=== PATIENT | female | born 1990 | race American Indian/Alaskan Native ===

== ENCOUNTER 2019-04-26 07:27 | Day surgery (SDC) | payer BC ==
[~2019-04-26 07:27] MED LIST: LACTATED RINGERS 1,000 ML IV SCH; NEURONTIN PO NR; TRANSDERM-SCOP TD NR; VERSED IV NR
--- NOTE | 2019-04-26 08:57 | Anesthesia Consultation ---
Anesthesia Consult and Med Hx Date of service: 04/26/19 - Airway Anesthetic Teeth Evaluation: Good (gum piercing above top incisors cannot be removed.) ROM Head & Neck: Adequate Mental/Hyoid Distance: Adequate Mallampati Class: Class II Intubation Access Assessment: Probably Good - Pulmonary Exam CTA: Yes - Cardiac Exam Cardiac Exam: RRR - Pre-Operative Health Status ASA Pre-Surgery Classification: ASA1 Proposed Anesthetic Plan: General - Pulmonary Hx Smoking: No Hx Respiratory Symptoms: No Hx Sleep Apnea: No - Cardiovascular System Hx Hypertension: No Hx Heart Attack/AMI: No Hx Percutaneous Transluminal Coronary Angioplasty (PTCA): No Hx Cardia Arrhythmia: No - Central Nervous System Hx Seizures: No CVA: No Hx Back Pain: Yes (LOW) Hx Psychiatric Problems: No - Gastrointestinal Hx Gastroesophageal Reflux Disease: No - Endocrine Hx Renal Disease: No Hx Liver Disease: No Hx Insulin Dependent Diabetes: No Hx Non-Insulin Dependent Diabetes: No Hx Thyroid Disease: No - Other Systems Hx Obesity: Yes - Additional Comments Anesthesia Medical History Comments: No prior GA. No FHx anesthetic complications.
--- NOTE | 2019-04-26 08:57 | Anesthesia Day of Surgery ---
Anesthesia Day of Surgery - Day of Surgery Patient Examined: Yes Patient H&P Reviewed: Yes Patient is NPO: Yes
[2019-04-26] MEDS ORDERED: BLOXIVERZ ONE (09:00)
[2019-04-26] MEDS ORDERED: TORADOL ONE (09:00)
[2019-04-26] MEDS ORDERED: ROBINUL ONE ×2 (09:00→10:29)
[2019-04-26] MEDS ORDERED: MARCAINE 0.5% INFILTRATI ONE ×2 (09:00→10:25)
[2019-04-26] MEDS ORDERED: SUBLIMAZE ONE ×2 (09:03→10:30)
[2019-04-26] MEDS ORDERED: DIPRIVAN 10 MG/ML IV ONE (09:03)
--- NOTE | 2019-04-26 09:13 | Short Stay Summary ---
Short Stay Documentation Date of service: 04/26/19 Narrative H&P: Pt is a 28yo BF G0 LMP 04/09/19 presents for surgical evaluation and treatment of chronic pelvic pain. She states her pain has been ongoing for 18 months, and pelvic u/s was essentially normal except for a small left ovarian cyst 1.7 x 2 x 1.3cm She is now scheduled for a Diagnostic Laparoscopy for Chronic Pelvic Pain. - History Principal diagnosis: Pelvic pain H&P: obtained from office Past Medical History: No medical history Past Surgical History: No surgical history Social history: no significant social history, - Allergies and Medications Current Medications: Allergies amoxicillin Allergy (Verified 04/26/19 09:04) Hives Penicillins Allergy (Verified 04/21/19 19:17) Hives and Throat clogging Home Medications Medication Instructions Recorded Confirmed Last Taken Type No Known Home Medications [No 04/21/19 04/21/19 Unknown History Reported Home Medications] Active Medications Celecoxib (Celebrex) 200 mg PO PREOP NR Stop: 04/26/19 23:59 Last Admin: 04/26/19 08:40 Dose: 200 mg Documented by: Gabapentin (Neurontin) 300 mg PO PREOP NR Stop: 04/26/19 23:59 Last Admin: 04/26/19 08:40 Dose: 300 mg Documented by: Hydromorphone HCl (Dilaudid) 0.5 mg IV Q10MIN PRN PRN Reason: Pain , Severe (7-10) Stop: 04/26/19 16:00 Lactated Ringer's (Lactated Ringers) 1,000 mls @ 100 mls/hr IV DIRECT DAVID Midazolam HCl (Versed) 2 mg IV PREOP NR Stop: 04/26/19 23:59 Scopolamine (Transderm-Scop) 1 each TD PREOP NR Stop: 04/29/19 23:59 Last Admin: 04/26/19 08:40 Dose: 1 each Documented by: - Physical exam General appearance: mild distress Integumentary: no rash HEENT: Atraumatic Lungs: Clear to auscultation Breasts: deferred Heart: Regular rate Gastrointestinal: normal Female Genitourinary: deferred Rectal Exam: deferred Extremities: no ischemia, No edema Neurological: Normal gait, Normal speech - Brief post op/procedure progress note Date of procedure: 04/26/19 Pre-op diagnosis: Chronic pelvic pain Post-op diagnosis: same (with right paratubal cysts; bowel adhesions to the left pelvic sidewall) Procedure: 1. Diagnostic laparoscopy 2. Right paratubal cystectomy 3. Lysis of pelvic adhesions Anesthesia: GETA Findings: Normal uterus with normal tubes and ovaries bilaterally. 2 small right paratubal cysts. Normal appendix. Hyperemic bowel. Bowel adhesions to the left pelvic sidewall. Surgeon: JOE JONES (operative consult with Dr. Orellana) Estimated blood loss: minimal Pathology: list (right paratubal cyst) Specimen disposition: to lab Condition: stable - Hospital course Hospital course: Unremarkable - Disposition Condition at discharge: Good Disposition: DC- TO HOME OR SELFCARE - Discharge Diagnoses (1) Chronic pelvic pain in female Status: Chronic (2) Paratubal cyst Status: Resolved Short Stay Discharge Plan Activity: no restrictions Diet: regular Wound: open to air, keep clean and dry Follow up with: JOE JONES MD [Primary Care Provider] - 14 Days Prescriptions: HYDROcodone/APAP 5-325 [Geddes 5/325] 1 each PO Q6HR PRN #20 tablet PRN Reason: Pain
[2019-04-26] MEDS ORDERED: GENTAMICIN 80 MG in NACL 0.9% 100 ML IV ONE (09:34)
[2019-04-26] MEDS ORDERED: CLEOCIN 900 MG/50 mL 900 MG/50 ML BAG IV NR (09:34)
[2019-04-26] MEDS ORDERED: GENTAMICIN ONE (09:53)
[2019-04-26] MEDS ORDERED: GENTAMICIN/NS 80 MG/100 ML 100 ML IV NR (10:00)
[2019-04-26] MEDS ORDERED: ANCEF/STERILE WATER 2 GM/20 ML 2 GM/20 ML SYRINGE IV NR (10:00)
[2019-04-26] MEDS ORDERED: NACL 0.9% IR ONE ×2 (10:25)
[2019-04-26] MEDS ORDERED: ZOFRAN ONE (10:29)
[2019-04-26] MEDS ORDERED: XYLOCAINE MPF 2% ONE (10:29)
[2019-04-26] MEDS ORDERED: DECADRON ONE (10:29)
[2019-04-26] MEDS ORDERED: ZEMURON IV ONE (10:29)
[2019-04-26] MEDS: DILAUDID IV PRN ×2 (11:35→11:48)
--- NOTE | 2019-04-26 11:44 | Operative Report ---
Operative Report Operative Report: Date of procedure: 04/26/2019 Pre-operative diagnosis: Chronic pelvic pain Post-operative diagnosis: Same with right paratubal cyst and bowel adhesions to the left pelvic sidewall Procedure name(s): 1. Diagnostic laparoscopy 2. Right paratubal cystectomy 3. Lysis of pelvic adhesions Surgeon: Iker Ayala MD Product Craftsman: None. Intraoperative consultation with Dr. Orellana Anesthesia: Gen. endotracheal intubation by Dr. Atwood EBL: 25 mL's Findings: A normal uterus with normal tubes and ovaries bilaterally. 2 small paratubal cysts. Normal appendix. Hyperemic bowel. Bowel adhesions to the left pelvic sidewall. Procedure: After the patient was correctly identified, she was prepped and draped in usual sterile fashion and placed in dorsal lithotomy position. First the bladder was emptied using a Steele catheter, then the speculum was placed in the vaginal vault and the anterior lip of the cervix was grasped using single- tooth tenaculum. The uterine manipulator was then placed and the tenaculum and speculum were removed. Attention was then turned to the abdomen where the periumbilical incision was made using a skin knife. The Optiview trocar was inserted under direct visualization. Was noted to be a small contusion on the mesentery of the small bowel, for which intraoperative consultation was obtained using Dr. Orellana who examined the bowel and found no need for further intervention. The bowel however did appear hyperemic, but this was consistent with the surrounding bowel. Attention was then turned to the pelvis where the uterus was found to be normal, and the tubes and ovaries are normal bilaterally. There were 2 small paratubal cyst on the right, and there were bowel adhesions to the left pelvic sidewall. A suprapubic incision and right lateral incision was made through which 5 mm trochars were placed in order to aid in manipulation of the pelvic organs. The 2 small right paratubal cysts were excised, and the adhesions of the bowel to the left pelvic sidewall was taken down using both sharp and blunt dissection. At this point the procedure was considered complete. Copious amount of irrigation was performed and excellent hemostasis was assured. All instruments are removed from abdomen, the abdomen deflated, and the periumbilical incision was closed using 0 Vicryl suture in a [id number] configuration of the fascia followed by 4-0 Monocryl suture in sub-cuticular fashion on the skin. The suprapubic and right lateral incisions were closed in similar fashion. Each incision was infiltrated using 0.5% Marcaine solution. The uterine manipulator was removed. The Steele catheter also removed. The patient tolerated the procedure well and was transported to recovery room in stable condition.
[2019-04-26] MEDS ORDERED: NORCO 5/325 PO PRN (11:57)
[2019-04-26 13:10] VITALS: BP 122/71
--- NOTE | 2019-04-26 22:21 | Event Note ---
Date: 04/26/19 Gen Surg Dictation#[id number]
--- NOTE | 2019-04-26 23:02 | Operative Report ---
PREOPERATIVE DIAGNOSIS: Rule out bowel injury. POSTOPERATIVE DIAGNOSIS: Small mesenteric tear. PROCEDURE: Diagnostic laparoscopy. Intraoperative consultation. SURGEON: Celestine Orellana MD ANESTHESIA: General. ESTIMATED BLOOD LOSS: None. FINDINGS: Mildly dilated bowel at the point of small mesenteric injury and proximally distal bowel was completely normal. No evidence of fibrotic stenosis, mass, adhesion, etc. SPECIMENS: None. DRAINS: None. COMPLICATIONS: None. Case was handed back over to Dr. Ayala. The patient was in stable condition. INDICATIONS: This is a 28-year-old female who Dr. Ayala brought to the operating room for diagnostic laparoscopy for chronic pelvic pain. My understanding is that upon entry with the ports, there was a small mesenteric injury. General Surgery was consulted to evaluate for possible bowel injury: The patient was already asleep on the table. I was unable to speak to the patient beforehand. OPERATIVE NOTE: The case was already underway. I scrubbed in and joined the case. I ran the small bowel in the area of the mesenteric tear and this was a vertical tear that was at most about 0.5 cm. It was a very small tear. There was no active bleeding. It was not full thickness. It was located approximately 1.5-2 cm below the edge of the bowel. The bowel itself was mildly dilated. There was fluid in there. I think the appearance was confusing and that the discoloration of the mildly dilated bowel was suggested to the team of possible ischemia; however, this was not ischemic bowel, it was completely viable. It just had excess fluid in there. Interestingly, just distal to where the injury was there was a change in caliber to completely decompress small bowel that was pink. I checked the area thoroughly. At the transition point, there were no adhesions, there was no mass, there is no fibrotic stenosis, nothing that I could explain as to the cause and then I ran the bowel proximally and that distention went proximally as well and the change in appearance was also consistent. I do not think that this change in appearance was related to ischemic bowel. I do not think that the trocar hit the bowel in any way to cause such a long area to be discolored. I think this is simply fluid that is accumulated and cause some mild distention. No resection was felt to be necessary. No repair of that partial thickness mesenteric tear was felt to be necessary. There was no active bleeding. At this point, I turned the case back over to Dr. Ayala. The patient was stable at the time. JOB# [id number] PATI/SALMA
== END 2019-04-26 13:55 | disposition home or self-care (01) ==
LOC: OR 07:27
PROVIDERS: ATTEND Obstetrics & Gynecology
DX: S35.299A Unspecified injury of branches of celiac and mesenteric artery, initial encounter (principal); G43.909 Migraine, unspecified, not intractable, without status migrainosus; E66.9 Obesity, unspecified; Z88.0 Allergy status to penicillin; Z88.6 Allergy status to analgesic agent; Z79.899 Other long term (current) drug therapy; Z68.32 Body mass index [BMI] 32.0-32.9, adult; Z72.89 Other problems related to lifestyle; Z80.3 Family history of malignant neoplasm of breast
CPT/HCPCS: 49320; 81025; 82803; 88304; A4217; J1100; J1170; J1580; J1885; J2250; J2405; J2704; J2710; J3010; J7120